=== PATIENT | male | born 1965 | race Caucasian/White ===

== ENCOUNTER → 2017-10-01 07:03 | Outpatient (CLI) | payer OTHER, SELFPAY ==
--- NOTE | 2017-10-01 07:11 | CT_ITS ---
STUDY: CT CHEST WITHOUT CONTRAST REASON FOR EXAM: Male, 52 years old. Calcium scoring. Elevated cholesterol levels. RADIATION DOSAGE (If Supplied By Facility): CTDIvol = ( 8.99 ) mGy, DLP = ( 197.68 ) mGycm TECHNIQUE: Transaxial imaging was performed without the administration of intravenous contrast material. The examination was tailored for calcium scoring. Individualized dose optimization techniques were used for this CT. COMPARISON: None. FINDINGS: Limited study of the lungs demonstrates no significant abnormality. Scattered small benign-appearing mediastinal lymph nodes. CT/Limited Chest CT w/CCTA IMPRESSION: Coronary artery calcification. Electronically Signed: Don Gloria MD at 13:01 EDT Tel [phone], Service support ,
[2017-10-01 07:17] VITALS: BP 137/91; PULSE 61; RESP 16; O2SAT 98; BMI 29.7
--- NOTE | 2017-10-01 19:05 | CA.SCORE ---
Calcium Scoring Date of Study:: 10/01/17 Coronary Calcium Scorin.13 Conclusion: Coronary calcium score: 3.13 Results: Coronary calcium score: 3.13 Impression: The patient underwent high resolution CT imaging of the chest on 10/01/2017 with particular attention to the coronary arteries. The images were examined and analyzed for the present and extent of coronary artery calcification using coronary calcium quantification software. The patient tolerated the procedure well with no obvious adverse events. The patient had a coronary calcium score of 3.13 Based upon pre-published reference tables a coronary calcium score between 1 and 10 would be indicative of minimal plaque burden with the likelihood of significant coronary artery disease being considered very unlikely. This note was generated with [employer] software. It may contain incorrect words, spelling, and punctuation that were not noted in checking the note before signing.
--- NOTE | 2017-10-01 19:08 | CCTA_ITS ---
Calcium Scoring Date of Study:: 10/01/17 Coronary Calcium Scorin.13 Conclusion: Coronary calcium score: 3.13 Results: Coronary calcium score: 3.13 Impression: The patient underwent high resolution CT imaging of the chest on 10/01/2017 with particular attention to the coronary arteries. The images were examined and analyzed for the present and extent of coronary artery calcification using coronary calcium quantification software. The patient tolerated the procedure well with no obvious adverse events. The patient had a coronary calcium score of 3.13 Based upon pre-published reference tables a coronary calcium score between 1 and 10 would be indicative of minimal plaque burden with the likelihood of significant coronary artery disease being considered very unlikely. This note was generated with [employer] software. It may contain incorrect words, spelling, and punctuation that were not noted in checking the note before signing.
== END ==
PROVIDERS: Family Provider Internal Medicine; PCP Internal Medicine; Visit Provider Internal Medicine
DX: Z13.9 Encounter for screening, unspecified (principal); E78.00 Pure hypercholesterolemia, unspecified; Z82.49 Family history of ischemic heart disease and other diseases of the circulatory system
CPT/HCPCS: 75571; 76380

== ENCOUNTER → 2018-02-20 08:38 | Outpatient (CLI) | payer OTHER, SELFPAY ==
[2017-10-01 07:17] VITALS: BMI 29.7
== END ==
PROVIDERS: Family Provider Internal Medicine; PCP Internal Medicine; Referring Provider Physician Assistant; Visit Provider Physician Assistant
DX: L82.1 Other seborrheic keratosis (principal); L81.4 Other melanin hyperpigmentation; D22.5 Melanocytic nevi of trunk; D18.01 Hemangioma of skin and subcutaneous tissue; L90.5 Scar conditions and fibrosis of skin; D48.5 Neoplasm of uncertain behavior of skin; L73.8 Other specified follicular disorders; L08.9 Local infection of the skin and subcutaneous tissue, unspecified; L30.8 Other specified dermatitis; Z08 Encounter for follow-up examination after completed treatment for malignant neoplasm; Z85.820 Personal history of malignant melanoma of skin
CPT/HCPCS: 87070; 87075; 87186; 87205

== ENCOUNTER → 2019-09-22 16:05 | Outpatient (CLI) | payer BC, SELFPAY ==
[2017-10-01 07:17] VITALS: BMI 29.7
[2019-09-22 18:04] LABS: CRP < 2.90 mg/L (0.0-3.0)
[2019-09-27 14:08] LABS: Endomysial Antibody IgA Negative (Negative); Immunoglobulin A 76 mg/dL (90-386)
[2019-09-27 15:25] LABS: t-Transglutaminase IgA <2 U/mL (0-3)
== END ==
PROVIDERS: PCP Internal Medicine; Referring Provider Internal Medicine Gastroenterology; Visit Provider Internal Medicine Gastroenterology
DX: R19.7 Diarrhea, unspecified (principal)
CPT/HCPCS: 36415; 82784; 83516; 86140; 86255

== ENCOUNTER → 2019-10-29 08:24 | Outpatient (CLI) | payer BC, SELFPAY ==
[2017-10-01 07:17] VITALS: BMI 29.7
== END ==
PROVIDERS: PCP Internal Medicine; Referring Provider Internal Medicine Gastroenterology; Visit Provider Internal Medicine Gastroenterology
DX: K90.0 Celiac disease (principal)
CPT/HCPCS: 36415

== ENCOUNTER 2021-03-23 10:43 | Outpatient (CLI) | payer BC, SELFPAY | END 2021-03-23 23:59 | disposition short-term general hospital (02) | LOC: SL 10:43 | PROVIDERS: PCP Internal Medicine; Referring Provider Internal Medicine; Visit Provider Internal Medicine | DX: G47.10 Hypersomnia, unspecified (principal) | CPT/HCPCS: 95806 ==

== ENCOUNTER 2021-06-14 17:03 | Outpatient (CLI) | payer BC, SELFPAY | END 2021-06-14 23:59 | disposition home or self-care (01) | PROVIDERS: PCP Internal Medicine; Referring Provider Otolaryngology Otolaryngology/Facial Plastic Surgery; Visit Provider Otolaryngology Otolaryngology/Facial Plastic Surgery | DX: B37.9 Candidiasis, unspecified (principal) | CPT/HCPCS: 87070; 87205 ==

== ENCOUNTER → 2021-07-10 | Outpatient (CLI) | payer BC, SELFPAY | END | disposition home or self-care (01) | LOC: LABSPEC 15:22 | PROVIDERS: PCP Internal Medicine; Referring Provider Otolaryngology Otolaryngology/Facial Plastic Surgery; Visit Provider Otolaryngology Otolaryngology/Facial Plastic Surgery | DX: K12.0 Recurrent oral aphthae (principal) | CPT/HCPCS: 87070 ==

== ENCOUNTER → 2021-10-23 | Outpatient (CLI) | payer OTHER, SELFPAY ==
--- NOTE | 2021-10-23 | IMM_PTH ---
PATIENT: NILA ESCALONA LOC: [facility] U#:[id number] AGE/SX: 56/M ROOM: RE10/23/[address]: Dr. Tom Kim DDS : 1965 BED: DIS: 10/23/2021 SPEC #: [id number] RECD: 10/25/21 14:13 STATUS: JEFF REAnthony #: [id number] KAMAR: 10/23/21 00:[address]: Tom Kim DEPT: IMMUNOHISTOCHEMISTRY RECD BY: Donna Ferrer ENTERED: 10/25/21 14:14 SP TYPE: IMMUNO OTHR DR: Dr. Monse Nair MD Tissues: Tongue, NOS Procedures: p16 (initial) KI-67 (add) PHYSICIAN & INSTITUTION [facility] [id number] SPECIMEN INFORMATION: Tissue Source: Right lateral tongue Clinical Info: Nonhealing right tongue ulcer Specimen Number: [id number] CPT code: 03171, 23190 METHODOLOGY: Deparaffinized sections of prefer/formalin-fixed tissue or PAP/DQ stained slides are incubated with monoclonal/polyclonal antibodies/oligonucleotide probes. Localization is made via biotin free immunoperoxidase method. Appropriate controls are performed and reacted as expected. Results on target cell population are indicated in the following table: RESULTS: ANTIBODY / CLONE RESULT P16 (E6H4) positive, patchy Ki-67 (30-9) positive, low These tests were developed and their performance characteristics determined by [facility]. They may not have been cleared or approved by the U.[place]. Food and Drug Administration. The FDA has determined that such clearance or approval is not necessary. The above immunohistochemical/dualISH markers are ordered and reviewed by the Pathologist. INTERPRETATION: Right lateral tongue, biopsy: Focal HPV change present. AM:randall 10/26/2021 Case has been reviewed in consultation with Dr. Johnston who concurs with the above diagnosis. IDC:[id number]
--- NOTE | 2021-10-23 | TOBX_PTH ---
PATIENT: NILA ESCALONA LOC: [facility] U#:[id number] AGE/SX: 56/M ROOM: RE10/23/[address]: Dr. Tom Kim DDS : 1965 BED: DIS: 10/23/2021 SPEC #: [id number] RECD: 10/23/21 13:31 STATUS: JEFF KASEY #: [id number] KAMAR: 10/23/21 00:[address]: Tom Kim DEPT: SURGICAL PATHOLOGY RECD BY: Jorge Licona ENTERED: 10/24/21 11:38 SP TYPE: TONGUE BX OTHR DR: Dr. Monse Nair MD Tissues: Tongue, NOS Procedures: Special Stain Group I Surgery Specimen Level IV GMS Stain (control) HEADER OPERATION: Biopsy right tongue PRE-OP DIAGNOSIS: Nonhealing ulcer right tongue TISSUE SUBMITTED: Right lateral tongue MICROSCOPIC DIAGNOSIS Right lateral tongue, biopsy: Ulceration with associated acute and chronic inflammation and granulation. Focal viral cytopathic change noted. See comment. AM:randall 10/25/2021 COMMENT GMS stain with matched control was used in the evaluation of this case. Results from immunohistochemistry ([id number]) for surrogate HPV marker (p16) will be reported separately. Case has been reviewed in consultation with Dr. Johnston who concurs with the above diagnosis. IDC:[email or web address] MICROSCOPIC DESCRIPTION Slides are reviewed. GROSS DESCRIPTION Received in fixative is one container labeled with the patient's name and designated tongue biopsy. The specimen consists of a single irregular fragment of love tissue. The specimen is inked, bisected and totally submitted in one cassette. / AM:randall 10/24/2021 TC:2 CPT: 69364 ADDENDUM ADDENDUM ADDENDUM ADDENDUM ADDENDUM ADDENDUM ADDENDUM ADDENDUM ADDENDUM ADDENDUM 03/20/2022 15:37 ADDENDUM 03/20/2022 15:37 ADDENDUM 03/20/2022 15:37 ADDENDUM 03/20/2022 15:37 ADDENDUM 03/20/2022 15:37 This addendum is added to incorporate an outside pathology consultation report. The case was examined at [facility] (#[id number]) and the following diagnosis was rendered. Lateral tongue, right, biopsy: Ulcer with marked squamous epithelial atypia. Please see complete above mentioned consultation report in EMR
== END | disposition home or self-care (01) ==
LOC: LABSPEC 13:33
PROVIDERS: PCP Internal Medicine; Referring Provider Dentist Oral and Maxillofacial Surgery; Visit Provider Dentist Oral and Maxillofacial Surgery
DX: K14.0 Glossitis (principal)
CPT/HCPCS: 88305; 88312; 88341; 88342

== ENCOUNTER 2022-03-14 12:46 | Outpatient (CLI) | payer OTHER, SELFPAY ==
--- NOTE | 2022-03-14 12:50 | US_ITS ---
STUDY: SCROTUM ULTRASOUND REASON FOR EXAM: Male, 56 years old. Left TESTICULAR SWELLING following heavy lifting. TECHNIQUE: Ultrasound evaluation of the scrotum was performed with color Doppler and static monsivais-scale imaging. COMPARISON: None. FINDINGS: RIGHT TESTICLE INTRATESTICULAR: There is a normal size of the right testicle. The right testicle measures 2.6 cm x 2 cm x 1.7 cm. There is a homogenous echotexture. There is normal arterial and normal venous vascularity. There is no demonstrated right testicular mass or cyst. EXTRATESTICULAR: The epididymis is normal in size. The epididymis head measures 1.1 cm x 1.1 cm x 0.6 cm. There is normal vascularity of the epididymis. There is no demonstrated epididymal cystic structure. There is no demonstrated hydrocele. There is no demonstrated varicocele. There is no demonstrated extratesticular mass or cyst. LEFT TESTICLE INTRATESTICULAR: There is a normal size of the left testicle. The left testicle measures 2.5 cm x 1.7 cm x 1.5 cm. There is a homogenous echotexture. There is normal arterial and normal venous vascularity. There is no demonstrated left testicular mass or cyst. EXTRATESTICULAR: The epididymis is normal in size. The epididymis head measures 1.1 cm x 1 cm x 0.8 cm. There is normal vascularity of the epididymis. There is no demonstrated epididymal cystic structure. There is no demonstrated hydrocele. There are prominent extratesticular veins consistent with a varicocele. Questionable small left scrotal hernia. US/Testicular with Arterial Flow IMPRESSION: Small varicocele in the left scrotum. Possible small left scrotal hernia. Electronically Signed: Don Gloria MD at 14:18 EST ,
== END 2022-03-14 23:59 | disposition home or self-care (01) ==
LOC: US 12:48
PROVIDERS: PCP Internal Medicine; Referring Provider Internal Medicine; Visit Provider Internal Medicine
DX: N50.819 Testicular pain, unspecified (principal); N50.89 Other specified disorders of the male genital organs
CPT/HCPCS: 76870; 93976

== ENCOUNTER → 2025-02-21 | Outpatient (CLI) | payer BC, SELFPAY ==
[2025-02-21 10:43] LABS: Color, Urine Yellow (Yellow); Glucose, Dipstick Normal (Normal); Ketone-Dipstick Negative (Negative); Leukocyte Esterase-Dipstick Negative /ul (Negative); Nitrite-Dipstick Negative (Negative); Occult Blood-Urine Negative /ul (Negative); Protein-Dipstick 15 mg/dl (Negative); Specific Gravity, Urine 1.015 (1.002-1.030); Urine Bilirubin Dipstick Negative (Negative)
[2025-02-21 10:50] LABS: Hematocrit 50.2 % (40-54); Hemoglobin 17.8 g/dL (13.0-16.5); Immature Granulocytes Count 0.230 X10^3/uL (0.0-0.0); Mean Corp Hgb Conc 35.5 g/dL (32-36); Mean Corpuscular Volume 90.0 fL (80-94); Mean Platelet Vol. 9.3 fl (6.2-12.0); NRBC Flagged by Analyzer 0 % (0-5); Platelet Count 162 K/mm3 (150-450); RBC Distribution Width CV 13.6 % (11.6-14.6); RBC Distribution Width SD 45.0 fl (35.1-43.9); Red Blood Count 5.58 M/mm3 (4.6-6.2); White Blood Count 5.1 K/mm3 (4.4-11.0)
[2025-02-21 11:18] LABS: Creatinine, Urine (random) 157.00 mg/dL (39.00-259.00); Microalbumin,Random Urine 18.8 mg/L (<20 mg/L)
[2025-02-21 11:24] LABS: AST(SGOT) 27 U/L (<=37); Alanine Aminotransfer ALT/SGPT 39 U/L (<=46); Albumin, Serum 4.8 g/dL (3.4-4.8); Alkaline Phosphatase 48 U/L (40-129); Anion Gap 12 (5-15); BUN 17 mg/dL (4-19); BUN/Creat Ratio 13.5 RATIO (10-20); Calcium,Total 10.2 mg/dL (7.6-11.0); Carbon Dioxide 26.4 mmol/L (21.0-32.0); Chloride 102 mmol/L (98-108); Globulin 2.3 g/dL (2.2-4.2); Glucose 97 mg/dL (70-99); PSA,Total - Annual Screen 1.44 ng/mL (0.02-4.00); Potassium 4.6 mmol/L (3.3-5.1)
== END | disposition home or self-care (01) ==
LOC: LABSPEC 10:36
PROVIDERS: PCP Internal Medicine; Referring Provider Internal Medicine; Visit Provider Internal Medicine
DX: Z12.5 Encounter for screening for malignant neoplasm of prostate (principal); D75.1 Secondary polycythemia; E34.9 Endocrine disorder, unspecified; E78.5 Hyperlipidemia, unspecified
CPT/HCPCS: 80053; 81002; 82043; 82570; 84153; 84402; 85025; G0103